=== PATIENT | male | born 1950 | race Caucasian/White ===

== ENCOUNTER 2017-12-14 22:03 | Emergency (ER) | payer OTHER, BC ==
[2017-12-14] MEDS ORDERED: NS 1,000 ML IV ONE (22:30)
[2017-12-14] MEDS ORDERED: fentaNYL 100 MCG/2 ML INJ IVP ONE (22:30)
--- NOTE | 2017-12-14 22:35 | EDPHY ---
HPI/HX/ROS/PE/MDM ED Course: Chief Complaint: Abdominal pain HPI: 67-year-old male had a sudden onset of right lower abdominal pain at 9:30 a.m. This evening. Pain occasionally radiates to his right testicle. He was reading at that time. No nausea or vomiting. He did passed some gas and stool after it started. He cannot find a position of comfort. Pain is about a 6/10. There are no aggravating or alleviating factors. No history of similar episodes in the past. No fevers or chills. No chest pain or shortness of breath. ROS: 10 point Review of Systems is negative except as noted in the HPI. PMH: Denies Social History: No smoking, no alcohol, no recreational drug use Family History: non-contributory Physical Exam: Gen: Awake, Alert, No Distress HEENT: Nose: no rhinorrhea Eyes: PERRLA, EOMI Mouth: Moist mucosa Neck: Supple, no JVD Chest: nontender, lungs clear to auscultation Heart: S1, S2 normal, no murmur Abd: Soft, non-tender, no guarding Back: no CVA tenderness, no midline tenderness Ext: no edema, non-tender Skin: no rash Neuro: CN II-XII intact, Sensation grossly intact, Strength 5/5 in bilateral upper and lower extremities MDM: CT scan shows a 3 mm stone in the ureter within the bladder wall. There are still several small stones in bilateral kidneys. Patient is improved. Pain is gone after Toradol. Is likely that he has actually passed the stone. Because of the location of the stone in the size am not going to start him on tamsulosin. He will take ibuprofen as needed for pain. He will collect the stone and take it to his physician. He has a history of gout was recently started on medications. Is certainly possible that he has a uric acid verses a calcium oxalate stone. - Data Points Imaging Results: Imaging Impressions Abdomen/Pelvis CT 12/14/17 23:08 Impression: 1. 3 mm stone in the bladder at the right ureterovesical junction with moderate obstructive uropathy. 2. Bilateral nephrolithiasis. 3. Fatty liver. 4. Bladder wall thickening, possibly related to underdistention and/or bladder outlet obstruction from mild prostatic hypertrophy. 5. Additional findings as above. Findings discussed with Jef Vale MD 12/14/2017 at 23:43. Attention: This CT examination is specifically designed to evaluate patients who are clinically suspected of having acute obstructive uropathy. This examination does not use radiographic contrast and provides only a limited evaluation of the abdomen, pelvis and retroperitoneum. If there is further clinical suspicion for pathological conditions other than obstructive uropathy, a complete CT evaluation of the abdomen and pelvis utilizing intravenous and enteric contrast should be considered. Imaging: Discussed imaging studies w/ soldering machine operator helper Radiologist Laboratory Results: Laboratory Results 12/14/17 22:24 12/14/17 22:24 12/14/17 12/14/17 12/14/17 22:24 22:24 22:24 WBC 7.61 10^3/uL 10^3/uL (3.80-9.50) RBC 4.09 10^6/uL L 10^6/uL (4.40-6.38) Hgb 13.4 g/dL L g/dL (13.7-17.5) Hct 39.0 % L % (40.0-51.0) MCV 95.4 fL fL (81.5-99.8) MCH 32.8 pg pg (27.9-34.1) MCHC 34.4 g/dL g/dL (32.4-36.7) RDW 12.5 % % (11.5-15.2) Plt Count 235 10^3/uL 10^3/uL (150-400) MPV 10.0 fL fL (8.7-11.7) Neut % (Auto) 50.6 % % (39.3-74.2) Lymph % (Auto) 35.6 % % (15.0-45.0) [place] % (Auto) 10.9 % % (4.5-13.0) Eos % (Auto) 2.4 % % (0.6-7.6) Baso % (Auto) 0.4 % % (0.3-1.7) Nucleat RBC Rel Count 0.0 % % (0.0-0.2) Absolute Neuts (auto) 3.85 10^3/uL 10^3/uL (1.70-6.50) Absolute Lymphs (auto) 2.71 10^3/uL 10^3/uL (1.00-3.00) Absolute Monos (auto) 0.83 10^3/uL H 10^3/uL (0.30-0.80) Absolute Eos (auto) 0.18 10^3/uL 10^3/uL (0.03-0.40) Absolute Basos (auto) 0.03 10^3/uL 10^3/uL (0.02-0.10) Absolute Nucleated RBC 0.00 10^3/uL 10^3/uL (0-0.01) Immature Gran % 0.1 % % (0.0-1.1) Immature Gran # 0.01 10^3/uL 10^3/uL (0.00-0.10) Sodium 144 mEq/L mEq/L (135-145) Potassium 3.8 mEq/L mEq/L (3.3-5.0) Chloride 103 mEq/L mEq/L (97-110) Carbon Dioxide 29 mEq/l mEq/l (22-31) Anion Gap 12 mEq/L mEq/L (8-16) BUN 18 mg/dL mg/dL (7-23) Creatinine 1.0 mg/dL mg/dL (0.7-1.3) Estimated GFR > 60 Glucose 92 mg/dL mg/dL (70-100) Calcium 9.7 mg/dL mg/dL (8.5-10.4) Urine Color YELLOW Urine Appearance HAZY Urine pH 5.0 (5.0-7.5) Ur Specific [place] 1.020 (1.002-1.030) Urine Protein NEGATIVE (NEGATIVE) Urine Ketones TRACE H (NEGATIVE) Urine Blood 3+ H (NEGATIVE) Urine Nitrate NEGATIVE (NEGATIVE) Urine Bilirubin NEGATIVE (NEGATIVE) Urine Urobilinogen 2.0 EU H EU (0.2-1.0) Ur Leukocyte Esterase NEGATIVE (NEGATIVE) Urine RBC 50-182 /hpf H /hpf (0-3) Urine WBC 3-5 /hpf H /hpf (0-3) Ur Epithelial Cells TRACE /lpf /lpf (NONE-1+) Urine Mucus TRACE /lpf /lpf (NONE-1+) Urine Glucose NEGATIVE (NEGATIVE) Medications Given: Discontinued Medications Fentanyl (Sublimaze) 50 mcg IVP EDNOW ONE Stop: 12/14/17 22:31 Last Admin: 12/14/17 22:37 Dose: 50 mcg Sodium Chloride (Ns) 1,000 mls @ 0 mls/hr IV ONCE ONE; Wide Open PRN Reason: Protocol Stop: 12/14/17 22:31 Last Admin: 12/14/17 22:38 Dose: 1,000 mls Ketorolac Tromethamine (Toradol) 15 mg IVP EDNOW ONE Stop: 12/14/17 23:09 Last Admin: 12/14/17 23:31 Dose: 15 mg General Time Seen by Provider: 12/14/17 22:17 Initial Vital Signs: Initial Vital Signs Temperature (C) 36.5 C 12/14/17 22:08 Heart Rate 59 L 12/14/17 22:08 Respiratory Rate 16 12/14/17 22:08 Blood Pressure 140/83 H 12/14/17 22:08 O2 Sat (%) 96 12/14/17 22:08 O2 Delivery Mode Room Air Allergies/Adverse Reactions: No Known Allergies Allergy (Verified 12/14/17 22:08) Home Medications: Medication Instructions Recorded Allopurinol 12/14/17 Departure - Departure Disposition: Home, Routine, Self-Care Clinical Impression: Kidney stone Condition: Good Instructions: Kidney Stones (ED) Additional Instructions: Make sure to drink at least 8, 8 oz glasses of water a day. You may take ibuprofen, 600 mg 3 times a day as needed for pain. Strain your urine and collect the stone. Take the stone to your primary care physician follow-up. Follow up with primary care physician in 3-4 days for further evaluation. Return to the emergency department for increasing abdominal pain, fevers, chills , nausea, vomiting, or any other concerns. Referrals: NONE *PRIMARY CARE P,. [Primary Care Provider] - As per Instructions
[2017-12-14 22:38] LABS: PLATELET COUNT 235 10^3/uL (150-400)
[2017-12-14] MEDS ORDERED: KETOROLAC 15 MG/1 ML SDV IVP ONE (23:08)
[2017-12-15 00:20] VITALS: BP 132/82
== END 2017-12-15 00:19 | disposition home or self-care (01) ==
DX: N20.0 Calculus of kidney (principal); E86.9 Volume depletion, unspecified
CPT/HCPCS: 74176; 96360; 99285; J1885; J3010